=== PATIENT | male | born 1990 | race African-American/Black ===

== ENCOUNTER 2019-06-01 10:05 | Emergency (ER) | payer OTHER ==
[~2019-06-01] VITALS: Ht 177.8 cm; Wt 83.7 kg
[2019-06-01] MEDS ORDERED: ADDE25CA PO (10:15)
[2019-06-01] MEDS ORDERED: ADDE10CA3 PO (10:15)
[2019-06-01] MEDS ORDERED: HYDR-3363 PO (10:15)
--- NOTE | 2019-06-01 11:33 | REP ---
Clinical: Pain. Technique: AP and lateral views of the right tibia / fibula. Findings: No acute fracture or dislocation. Skeletal structures, joint spaces, and surrounding soft tissues appear normal. No subcutaneous emphysema or radiodense foreign body. Impression: Normal right tibia / fibula radiographs. Electronically Signed by Héctor Berg MD 06/01/2019 11:24 A
--- NOTE | 2019-06-01 11:35 | REP ---
Clinical: Right lower extremity calf pain . Technique: Mckeon scale and color Doppler evaluation using linear high frequency transducer. Findings: Ultrasound examination of the right lower extremity deep venous structures from the common femoral vein to the popliteal vein demonstrates normal compressibility flow and wave patterns in response to respiration and augmentation. There is no evidence for deep venous thrombosis. Impression: No evidence for deep venous thrombosis. Electronically Signed by Héctor Berg MD 06/01/2019 11:26 A
[2019-06-01] MEDS ORDERED: KETO10TAB PO (12:07)
[2019-06-01 12:08] VITALS: BP 133/88
== END 2019-06-01 12:24 | disposition home or self-care (01) ==
LOC: M ED 10:05
DX: M76.811 Anterior tibial syndrome, right leg (principal); M79.661 Pain in right lower leg; F90.9 Attention-deficit hyperactivity disorder, unspecified type; Z79.899 Other long term (current) drug therapy